=== PATIENT | female | born 1990 | race Hispanic/Latino ===

== ENCOUNTER 2018-08-07 06:46 | Inpatient (IN) | payer MEDICAID, OTHER, SELFPAY ==
[~2018-08-07] VITALS: Ht 157.5 cm; Wt 88.0 kg
[2018-08-07 07:28] LABS: APPEARANCE,URINE Clear (CLEAR); BILIRUBIN,URINE Negative (NEGATIVE); COLOR,URINE Yellow (YELLOW); GLUCOSE, URINE (UA) Negative (NEGATIVE); KETONES,URINE Negative (NEGATIVE); LEUKOCYTE ESTERASE ,URINE Negative (NEGATIVE); NITRATE,URINE Negative (NEGATIVE); OCCULT BLOOD,URINE Small (NEGATIVE); PH,URINE 7.5 (5.0-8.0); PROTEIN,URINE Negative (NEGATIVE); UROBILINOGEN,URINE 0.2 mg/dL (0.2-1.0)
[2018-08-07 07:35] LABS: AMPHET/METH SCREEN,URINE NEGATIVE (NEGATIVE); BARBITURATE SCREEN, URINE NEGATIVE (NEGATIVE); BENZODIAZEPINES SCREEN,URINE NEGATIVE (NEGATIVE); CANNABINOID SCREEN,URINE NEGATIVE (NEGATIVE); COCAINE SCREEN,URINE NEGATIVE (NEGATIVE); OPIATE SCREEN,URINE NEGATIVE (NEGATIVE); PHENCYCLIDINE SCREEN,URINE NEGATIVE (NEGATIVE)
[2018-08-07 08:04] LABS: BACTERIA,URINE Rare /HPF (None Seen); WBC,URINE None Seen /HPF (0-1)
[2018-08-07 08:12] LABS: HEMATOCRIT 40.1 % (36-48); MEAN CORPUSCULAR HEMOGLOBIN 28.3 pg (27.0-33.0); MEAN CORPUSCULAR HGB CONC 33.4 g/dL (32.0-36.0); MEAN CORPUSCULAR VOLUME 84.7 fL (79-99); PLATELET COUNT (AUTO) 136 K/uL (130-400); RED BLOOD CELL COUNT(AUTO) 4.73 MIL/uL (4.00-5.50); WHITE BLOOD COUNT (AUTO) 6.6 K/uL (4.8-10.8)
[2018-08-07] MEDS ORDERED: LACTATED RINGERS 1000ML 1,000 ML IV PRN (08:20)
[2018-08-07] MEDS ORDERED: OXYTOCIN-LR 20 UNITS/1000 ML 1,000 ML IV SCH (08:30)
[2018-08-07] MEDS ORDERED: LACTATED RINGERS 1000ML 1,000 ML IV ONE (16:13)
[2018-08-07] MEDS ORDERED: OXYTOCIN 10 USP UNITS/ML ONE (16:14)
[2018-08-07] MEDS ORDERED: PROMETHAZINE HCL 25 MG/ML 1ML AMPULE IM PRN (21:30)
[2018-08-07] MEDS ORDERED: MEPERIDINE-PF 50 MG/ML SYG SQ PRN (21:30)
[2018-08-07] MEDS ORDERED: PROMETHAZINE HCL 25 MG/ML 1ML AMPULE IM ONE (21:36)
[2018-08-07] MEDS ORDERED: MEPERIDINE-PF 50 MG/ML SYG ONE (21:37)
[2018-08-08] VITALS (8 sets, daily range): BP systolic 95–115; BP diastolic 50–72
[2018-08-08] MEDS ORDERED: LIDOCAINE HCL MPF 1% 5ML VIAL ONE (00:41)
[2018-08-08] MEDS ORDERED: WITCH HAZEL 1 PAD TP PRN (02:00)
[2018-08-08] MEDS ORDERED: LANOLIN 30GM OINTMENT TP PRN (02:00)
[2018-08-08] MEDS ORDERED: OXYTOCIN-LR 20 UNITS/1000 ML 1,000 ML IV SCH (02:00)
[2018-08-08] MEDS ORDERED: BENZOCAINE/LANOLIN/ALOE VERA 60 ML AEROSOL TP PRN (02:00)
[2018-08-08] MEDS ORDERED: DOCU-116 PO (04:19)
[2018-08-08] MEDS ORDERED: PREN-64 PO (04:20)
[2018-08-08] MEDS ORDERED: LACTATED RINGERS 1000ML 1,000 ML IV ONE (05:26)
[2018-08-08] MEDS ORDERED: OXYTOCIN 10 USP UNITS/ML ONE (05:27)
[2018-08-08] MEDS: IBUPROFEN 600 MG TABLET PO PRN ×2 (05:37→19:04)
[2018-08-08] MEDS ORDERED: MEASLES/MUMPS/RUBELLA VACCINE, LIVE 0.5 ML/VIAL SQ PRN (06:30)
[2018-08-08] MEDS ORDERED: DIPH,PERTUSS(ACELL),TET VAC/PF 0.5 ML VIAL IM PRN (06:30)
[2018-08-09 03:40] VITALS: BP 117/51
[2018-08-09] MEDS: IBUPROFEN 600 MG TABLET PO PRN ×2 (05:10→15:02)
[2018-08-09 06:07] LABS: HEMATOCRIT 33.8 % (36-48); MEAN CORPUSCULAR HEMOGLOBIN 29.3 pg (27.0-33.0); MEAN CORPUSCULAR HGB CONC 34.5 g/dL (32.0-36.0); MEAN CORPUSCULAR VOLUME 84.9 fL (79-99); PLATELET COUNT (AUTO) 134 K/uL (130-400); RED BLOOD CELL COUNT(AUTO) 3.98 MIL/uL (4.00-5.50); RED CELL DISTRIBUTION WIDTH 15.3 % (11.0-15.5); WHITE BLOOD COUNT (AUTO) 8.5 K/uL (4.8-10.8)
[2018-08-09 06:15] LABS: HEPATITIS Bs ANTIGEN SCREEN P Negative (Negative)
[2018-08-09 07:52] VITALS: BP 112/71
[2018-08-09 11:25] VITALS: BP 106/72
[2018-08-09 15:35] VITALS: BP 122/75
== END 2018-08-09 17:45 | disposition home or self-care (01) | DRG 775 ==
LOC: EDH 06:46 → LDH 06:47 → OBSVTOIN 06:47 → WSH 08-08 03:06
PROVIDERS: ADMIT Obstetrics & Gynecology; ATTEND Obstetrics & Gynecology
PROC: 10E0XZZ Delivery of Products of Conception, External Approach (ICD-10-PCS; principal; 2018-08-08)
PROC: 3E0234Z Introduction of Serum, Toxoid and Vaccine into Muscle, Percutaneous Approach (ICD-10-PCS; 2018-08-08)
PROC: 3E0134Z Introduction of Serum, Toxoid and Vaccine into Subcutaneous Tissue, Percutaneous Approach (ICD-10-PCS; 2018-08-08)
DX: O80 Encounter for full-term uncomplicated delivery (principal); Z37.0 Single live birth; Z3A.39 39 weeks gestation of pregnancy; Z23 Encounter for immunization
CPT/HCPCS: 36415; 80305; 81001; 85027; 86592; 86850; 86900; 86901; 87340; J2175; J2550; J2590; J3490; J7120

== ENCOUNTER 2024-10-14 14:44 | Emergency (ER) | payer SELFPAY ==
[~2024-10-14] VITALS: Ht 157.5 cm; Wt 81.6 kg
[~2024-10-14 14:44] MED LIST: DOCU-116 PO; PREN-64 PO
--- NOTE | 2024-10-14 15:13 | ERN ---
General Chief Complaint: Chest Pain Stated Complaint: CP Time Seen by MD: 14:47 History of Present Illness Initial Comments 34-year-old female presents for chest pain. She reports center of the chest chest pressure radiates to her left back of her neck in her left shoulder. Has been constant since last night. No dyspnea. No falls or injuries. No history of previous episodes such as this. Of note, patient's cousin endorses that she has recently done cocaine. Denies medical or surgical history. Allergies: Coded Allergies: No Known Drug Allergies (Unverified Allergy, Unknown, 08/21/17) Home Meds Reported Medications Vit #76/Iron,Carb/FA (Prenatabs Rx Tablet) 1 Each Tablet, 1 EACH PO DAILY, TAB 08/08/18 Docusate Sodium (Colace) 100 Mg Capsule, 100 MG PO BID, CAP 08/08/18 Past Medical History Past Medical History: High Cholesterol Past Surgical History: Cholecystectomy, BTL ROS Dictation CONSTITUTIONAL: No chills, no fever, no weakness, no diaphoresis, no malaise. HEAD/FACE: No signs of trauma. EENT: No eye pain, no blurred vision, no tearing, no double vision, no ear pain, no ear discharge, no nose pain, no nasal congestion, no throat pain, no throat swelling, no mouth pain. RESPIRATORY: No cough, no orthopnea, no SOB, no stridor, no wheezing. CARDIOVASCULAR: Chest pain GASTROINTESTINAL/ABDOMINAL: No abdominal pain, no constipation, no diarrhea, no nausea, no vomiting. GENITOURINARY: No abnormal discharge, no dysuria, no frequent urination, no hematuria. No complaints of pain in the genitals. MUSCULOSKELETAL: No back pain, no gout, no joint pain, no joint swelling, no muscle pain, no muscle stiffness, no neck pain. INTEGUMENTARY: No change in color, no change in hair/nails, no dryness, no lesion, no lumps, no rash. NEUROLOGICAL/PSYCH: No anxiety, not depressed, no emotional problem, no headache, no numbness, no pre-existing deficit, no history of seizures, no tremors, no weakness. HEMATOLOGIC/LYMPHATIC: Not anemic, no history of blood clots, no apparent bleeding, no bruising, glands not swollen. All Systems Negative, Except as Noted. Physical Exam Physical Exam Dictation VITAL SIGNS: Reviewed. GENERAL APPEARANCE: Alert, oriented x3, no acute distress, obese. HEAD AND FACE: Non-traumatic. EYES: PERRL, pink conjunctivas, eyelid no trauma, anterior chamber clear. EARS: Pinnas intact and no signs of trauma or erythema. Ear canals clear and no discharge. TMs no erythema. NOSE: No discharge, no bleeding. OROPHARYNX: Mouth normal, teeth no caries, tongue pink. Pharynx clear, no erythema. Tonsils no exudates, no abscesses noted. Mucous membrane moist. NECK: Supple, non-tender, no thyromegaly, no masses, no JVD, no bruits. BREAST: Deferred. CHEST: No tenderness, no crepitus, no paradoxical movement, no retractions. LUNGS: Clear, well-ventilated, symmetric, no rales, no wheezing, no rhonchi, no stridor, good breath sounds bilaterally. HEART: Regular rate, regular rhythm, no murmur, no gallops. VASCULAR: No peripheral edema. ABDOMEN: Soft, positive bowel sounds, nondistended, no guarding, nontender, no rebound, no masses no hepatomegaly, no splenomegaly, no Mondragon's sign, no hernias. RECTAL: Deferred. GENITAL: Deferred. NEUROLOGICAL: Normal speech, gross motor function intact, gross sensory function intact. MUSCULOSKELETAL: Neck nontender, full range of motion, back nontender, full range of motion. EXTREMITIES: Nontender, full range of motion. SKIN: Color pink, dry, no turgor, no rash, no lacerations, no abrasions, no contusions. LYMPHATICS: Deferred. Results Laboratory and Microbiology Lab and Micro Result Laboratory Tests Test 10/14/24 15:08 10/14/24 15:31 10/14/24 16:26 White Blood Count 14.6 K/uL (4.8-10.8) H Red Blood Count 4.72 MIL/uL (4.00-5.50) Hemoglobin 14.7 g/dL (12.0-16.0) Hematocrit 41.8 % (36-48) Mean Corpuscular Volume 88.6 fL (79-99) Mean Corpuscular Hemoglobin 31.1 pg (27.0-33.0) Mean Corpuscular Hemoglobin Concent 35.2 g/dL (32.0-36.0) Red Cell Distribution Width 13.5 % (11.0-15.5) Platelet Count 281 K/uL (130-400) Mean Platelet Volume 10.6 fL (7.5-10.5) H Immature Granulocyte % (Auto) 0.6 % (0-1) Neutrophils (%) (Auto) 61.8 % (40.0-77.0) Lymphocytes (%) (Auto) 22.8 % (21.0-51.0) Monocytes (%) (Auto) 7.7 % (3.0-13.0) Eosinophils (%) (Auto) 6.3 % (0.0-8.0) Basophils (%) (Auto) 0.8 % (0.0-5.0) Neutrophils # (Auto) 9.0 K/uL (1.8-7.7) H Lymphocytes # (Auto) 3.3 K/uL (1.0-4.8) Monocytes # (Auto) 1.1 K/uL (0.1-1.0) H Eosinophils # (Auto) 0.92 K/uL (0.00-0.70) H Basophils # (Auto) 0.11 K/uL (0.00-0.20) Absolute Immature Granulocyte (auto 0.09 K/uL (0-1) Nucleated Red Blood Cells 0.0 % (0.0-0.19) Sodium Level 136 mmol/L (136-145) Potassium Level 3.5 mmol/L (3.5-5.1) Chloride Level 103 mmol/L (101-111) Carbon Dioxide Level 28 mmol/L (21-32) Blood Urea Nitrogen 9 mg/dL (7-18) Creatinine 0.6 mg/dL (0.5-1.0) Glomerular Filtration Rate Calc 119 mL/min (>90) Random Glucose 127 mg/dL (70-105) H Total Calcium 9.1 mg/dL (8.5-10.1) Total Creatine Kinase 123 U/L (21-232) Troponin I High Sensitivity < 4 ng/L (4-50) L B-Type Natriuretic Peptide 6 pg/mL (0-100) Troponin I < 0.05 ng/mL (0.00-0.05) Urine Color LIGHT-YELLOW (YELLOW) Urine Appearance CLOUDY (CLEAR) H Urine pH 5.5 (5.0-8.0) Urine Specific Bland 1.021 (1.001-1.031) Urine Protein 10 mg/dL (NEGATIVE) H Urine Glucose (UA) NEGATIVE mg/dL (NEGATIVE) Urine Ketones NEGATIVE mg/dL (NEGATIVE) Urine Occult Blood +- (TRACE) (NEGATIVE) H Urine Nitrate NEGATIVE (NEGATIVE) Urine Bilirubin NEGATIVE mg/dL (NEGATIVE) Urine Urobilinogen 0.2 mg/dL (0.2-1.0) Urine Leukocyte Esterase 500 Tamir/uL (NEGATIVE) H Urine RBC 11-25 /HPF (0-1) H Urine WBC 51-100 /HPF (0-1) H Urine Squamous Epithelial Cells MANY /HPF (0-2) Urine Bacteria None /HPF (None Seen) Urine Hyaline Casts 2-5 /LPF (0-1 /LPF) H Urine HCG, Qualitative NEGATIVE (NEGATIVE) Urine Opiates Screen NEGATIVE (NEGATIVE) Urine Barbiturates Screen NEGATIVE (NEGATIVE) Urine Phencyclidine Screen NEGATIVE (NEGATIVE) Urine Amphetamines Screen NEGATIVE (NEGATIVE) Urine Benzodiazepines Screen NEGATIVE (NEGATIVE) Urine Cocaine Screen POSITIVE (NEGATIVE) H Urine Marijuana (THC) Screen NEGATIVE (NEGATIVE) KELVIN Louie CC: Chest pain Historian: Patient Comorbidities: None Differential diagnosis: ACS, TAD, pneumonia, anxiety, metabolic disorder, drug abuse, other. EKG: NSR, rate 71, normal axis, good R-wave progression, interval stable. No STEMI. Interpreted by me. Labs ( independently ordered and interpreted by me): CBC is normal, BNP normal. CK normal. Troponin x2 is normal. BNP normal. CXR ( independently interpreted by me): No cardiomegaly or focal infiltrates. Patient has a heart score of 0 with a normal troponins x2. PERC negative. Low suspicion for TAD pneumonia or any other life-threatening pathology. We will DC. ED Course Orders Procedure Category Date Status Time Vital Signs Per CPOE 10/14/24 Transmitted Routine 14:52 B-Type Natriuretic LAB 10/14/24 Complete Peptide 14:52 12 Lead Ekg Tracing- EKG 10/14/24 Logged Technical 14:52 Oxygen By Nc/Pulse Ox CPOE 10/14/24 Transmitted 14:52 Maintain Iv CPOE 10/14/24 Transmitted 14:52 Iv Insertion CPOE 10/14/24 Transmitted 14:52 Cardiac Monitoring CPOE 10/14/24 Transmitted 14:52 Pulse Oximetry With CPOE 10/14/24 Transmitted Vs And Prn 14:52 Cbc With Differential LAB 10/14/24 Complete 14:52 Activity: Br W/Brp CPOE 10/14/24 Transmitted With Assist 14:52 Creatine Kinase, Total LAB 10/14/24 Complete 14:52 Urinalysis Profile LAB 10/14/24 Complete 14:52 Troponin Poc Order LAB 10/14/24 Complete Only 14:52 Bedside Troponin-I LAB.ER 10/14/24 In Process (Poc) 14:52 Basic Metabolic Panel LAB 10/14/24 Complete 14:52 Chest 1vw RAD 10/14/24 Logged 14:52 12 Lead Ekg Tracing- EKG 10/14/24 Logged Technical 14:52 ,Urine Test LAB 10/14/24 Complete 14:52 Troponin I High LAB 10/14/24 Complete Sensitivity 14:52 Drug Screen Urine LAB 10/14/24 Complete 14:52 Culture Urine ANGELY 10/14/24 In Process 16:35 Vital Signs Date Time Temp Pulse Resp B/P (MAP) Pulse Ox O2 Delivery O2 Flow Rate FiO2 10/14/24 16:19 97.5 70 18 117/73 96 Room Air* 0 21 10/14/24 14:47 97.9 78 18 130/93 97 Room Air 0 DX & DISP Disposition: Discharge Departure Impression: Primary Impression: Chest pain with low risk for cardiac etiology Condition: Stable Additional Instructions: You do not have any dangerous findings on your workup today. It is unclear what is causing your symptoms. You EKGs normal. Your chest x-ray is normal Your lab work (CBC, BNP, troponin x2, BNP) is unremarkable. You can take Tylenol or ibuprofen as needed for pain or discomfort. I recommend that he follow up with your primary doctor this week if you continue with symptoms. Return to the emergency department as needed. Referrals: NONE (PCP) SCOTT FLOWERS DO Oct 14, 2024 15:13
[2024-10-14 15:20] LABS: BASOPHILS # (AUTO) 0.11 K/uL (0.00-0.20); BASOPHILS % (AUTO) 0.8 % (0.0-5.0); EOSINOPHILS # (AUTO) 0.92 K/uL (0.00-0.70); EOSINOPHILS % (AUTO) 6.3 % (0.0-8.0); HEMATOCRIT 41.8 % (36-48); IMMATURE GRANULOCYTE ABSOLUTE 0.09 K/uL (0-1); LYMPHOCYTES # (AUTO) 3.3 K/uL (1.0-4.8); LYMPHOCYTES % (AUTO) 22.8 % (21.0-51.0); MEAN CORPUSCULAR HEMOGLOBIN 31.1 pg (27.0-33.0); MEAN CORPUSCULAR HGB CONC 35.2 g/dL (32.0-36.0); MEAN CORPUSCULAR VOLUME 88.6 fL (79-99); MONOCYTES # (AUTO) 1.1 K/uL (0.1-1.0); MONOCYTES % (AUTO) 7.7 % (3.0-13.0); NEUTROPHILS % (AUTO) 61.8 % (40.0-77.0); PLATELET COUNT (AUTO) 281 K/uL (130-400); RED BLOOD CELL COUNT(AUTO) 4.72 MIL/uL (4.00-5.50); RED CELL DISTRIBUTION WIDTH 13.5 % (11.0-15.5); WHITE BLOOD COUNT (AUTO) 14.6 K/uL (4.8-10.8)
[2024-10-14 15:27] LABS: CREATININE 0.6 mg/dL (0.5-1.0); POTASSIUM 3.5 mmol/L (3.5-5.1)
[2024-10-14 15:41] LABS: B-TYPE NATRIURETIC PEPTIDE 6 pg/mL (0-100)
[2024-10-14 16:19] VITALS: BP 117/73; PULSE 70; RESP 18; TEMP 97.6; O2SAT 96
[2024-10-14 16:33] LABS: APPEARANCE,URINE CLOUDY (CLEAR); BILIRUBIN,URINE NEGATIVE (NEGATIVE); COLOR,URINE LIGHT-YELLOW (YELLOW); GLUCOSE, URINE (UA) NEGATIVE (NEGATIVE); KETONES,URINE NEGATIVE (NEGATIVE); LEUKOCYTE ESTERASE ,URINE 500 Leu/uL (NEGATIVE); NITRATE,URINE NEGATIVE (NEGATIVE); PH,URINE 5.5 (5.0-8.0); PROTEIN,URINE 10 mg/dL (NEGATIVE); UROBILINOGEN,URINE 0.2 mg/dL (0.2-1.0)
[2024-10-14 16:35] LABS: ADD UA MICROSCOPIC YES
[2024-10-14 16:36] LABS: HCG,QUALITATIVE URINE NEGATIVE (NEGATIVE)
[2024-10-14 16:40] LABS: AMPHET/METH SCREEN,URINE NEGATIVE (NEGATIVE); BARBITURATE SCREEN, URINE NEGATIVE (NEGATIVE); BENZODIAZEPINES SCREEN,URINE NEGATIVE (NEGATIVE); CANNABINOID SCREEN,URINE NEGATIVE (NEGATIVE); COCAINE SCREEN,URINE POSITIVE (NEGATIVE); MUCUS,URINE RARE LPF (None Seen); OPIATE SCREEN,URINE NEGATIVE (NEGATIVE); PHENCYCLIDINE SCREEN,URINE NEGATIVE (NEGATIVE); SQUAMOUS EPITHELIAL CELL,UR MANY /HPF (0-2); WBC,URINE 51-100 /HPF (0-1)
--- NOTE | 2024-10-14 17:57 | HMCIMG ---
INDICATION: chest pain TECHNIQUE: CHEST 1VW COMPARISON: None FINDINGS/IMPRESSION: No acute consolidation or pleural effusion. Cardiac silhouette is within normal limits. Mild degenerative changes of the spine. The visualized upper abdomen appears unremarkable.
--- NOTE | 2024-10-16 07:41 | EKG ---
[facility] Test Date: 2024-10-14 Test Time: 14:54:06 Pat Name: SHITAL OLIVER Department: ED Room: Gender: F Groundskeeper: ESPERANZA : 1990 Requested By: SCOTT FLOWERS Order Number: [id number] Reading MD: Emelyn Uribe Measurements Intervals [place] Rate: 71 P: 17 ME: 134 QRS: 15 QRSD: 107 T: 50 QT: 410 QTc: 446 Interpretive Statements Sinus rhythm No previous ECG available for comparison Electronically Signed On 10-16-2024 10:36:24 PHP ENGINEER by Emelyn Uribe Please click the below link to view image of tracing.
== END 2024-10-14 17:10 | disposition home or self-care (01) ==
LOC: EDH 14:44
DX: R07.89 Other chest pain (principal); E78.00 Pure hypercholesterolemia, unspecified; Z90.49 Acquired absence of other specified parts of digestive tract; Z98.51 Tubal ligation status
CPT/HCPCS: 36415; 71045; 80048; 80305; 81001; 81025; 82550; 83880; 84484; 85025; 87086; 93005; 99285